=== PATIENT | male | born 1985 | race Caucasian/White ===

== ENCOUNTER 2016-10-26 14:51 | Observation (INO) | payer BC ==
[~2016-10-26] VITALS: Ht 177.8 cm; Wt 128.7 kg
[~2016-10-26 14:51] MED LIST: FENTANYL1 EAC1 TD; PERCOCET 5/31 TABLET PO
[2016-10-26 15:18] LABS: HEMATOCRIT 43.3 % (38.0-50.0); MCHC 34.9 G/DL (30.0-36.0); MCV 88.9 FL (86-99); MEAN PLAT.VOLUME 9.2 uM^3 (9.0-12.4); PLATELET COUNT 290 K/uL (156-360); RBC DIS.WIDTH-CV 12.3 % (11.8-14.6); RBC DIS.WIDTH-SD 39.4 % (39-53); RED BLOOD COUNT 4.87 M/uL (4.00-5.50); WHITE BLOOD COUNT 23.2 K/uL (4.1-10.2)
[2016-10-26 15:39] LABS: CHLORIDE 101 mEq/L (99-109); POTASSIUM 4.3 mEq/L (3.7-5.4); SODIUM 138 mEq/L (136-147)
[2016-10-26 15:41] LABS: GLUCOSE 164 mg/dL (70-99)
[2016-10-26 15:42] LABS: ANION GAP 15 MEQ/L (2-14)
[2016-10-26 15:43] LABS: TOTAL BILIRUBIN 0.9 mg/dL (0.0-1.0)
[2016-10-26 15:45] LABS: ALKALINE PHOSPHATASE 137 IU/L (3-129); GFR ESTIMATE (CALCULATED) > 59 mL/min/
[2016-10-26 15:46] LABS: UREA NITROGEN (BUN) 21 mg/dL (9-23)
[2016-10-26 15:48] LABS: LIPASE 11 U/L (1.0-51.0)
[2016-10-26] MEDS ORDERED: KLOR-CON M2020 MEQ PO (19:33)
[2016-10-26] MEDS ORDERED: ZANAFLEX4 MG PO (19:33)
[2016-10-26] MEDS ORDERED: MS CONTIN100 MG PO (19:34)
[2016-10-26] MEDS ORDERED: TRAZODONE HCL50 MG PO (19:34)
[2016-10-26] MEDS ORDERED: ZESTRIL20 MG PO (19:35)
[2016-10-26] MEDS ORDERED: CHANTIX1 MG PO (19:39)
[2016-10-26] MEDS ORDERED: CYMBALTA30 MG PO (19:39)
[2016-10-26] MEDS ORDERED: NEURONTIN800 MG PO (19:40)
[2016-10-26] MEDS ORDERED: LASIX40 MG PO (19:40)
[2016-10-26] MEDS ORDERED: OXYCODONE HCL30 MG PO (19:40)
[2016-10-26 19:50] LABS: ADD MIUA? NO; BILIRUBIN NEGATIVE; BLOOD NEGATIVE; COLOR YELLOW ((YELLOW)); GLUCOSE (STRIP) NEGATIVE; KETONES NEGATIVE; LEUKOCYTES NEGATIVE; NITRITE NEGATIVE; PH, URINE 6.5 (5-8); PROTEIN (STRIP) NEGATIVE; SPECIFIC GRAVITY 1.024 (1.000-1.030); UCUL ADDED? NO; UROBILINOGEN 0.2 MG/DL (0.2-1.0)
[2016-10-26 21:14] VITALS: BP 135/64
[2016-10-26 21:14] LABS: Estimated Average Glucose 114 mg/dL (70-123); HEMOGLOBIN A1c (GLYCOHEMOGLOB) 5.6 % HGB (Below 5.7)
[2016-10-27] VITALS: BP 146/67
[2016-10-27 00:13] LABS: POINT-OF-CARE METER ID UU13113831
[2016-10-27 04:20] VITALS: BP 140/71
[2016-10-27 05:41] LABS: POINT-OF-CARE METER ID UU13113831
[2016-10-27 07:13] LABS: ALKALINE PHOSPHATASE 118 IU/L (3-129); ANION GAP 9 MEQ/L (2-14); CHLORIDE 105 MEQ/L (99-109); GFR ESTIMATE (CALCULATED) > 59 mL/min/; GLUCOSE 127 mg/dL (70-99); SAMPLE HEMOLYSIS CHECK 0; SAMPLE ICTERIC CHECK 0; SAMPLE LIPEMIA CHECK 0; SODIUM 136 MEQ/L (136-147); TOTAL BILIRUBIN 0.7 MG/DL (0.0-1.0); UREA NITROGEN (BUN) 11 mg/dL (9-23)
[2016-10-27 07:21] LABS: HEMATOCRIT 36.3 % (38.0-50.0); MCH 30.9 PG (29.0-34.0); MCHC 34.2 G/DL (30.0-36.0); MCV 90.5 FL (86-99); MEAN PLAT.VOLUME 9.4 uM^3 (9.0-12.4); PLATELET COUNT 222 K/uL (156-360); RBC DIS.WIDTH-CV 12.6 % (11.8-14.6); RBC DIS.WIDTH-SD 41.4 % (39-53); RED BLOOD COUNT 4.01 M/uL (4.00-5.50); WHITE BLOOD COUNT 9.9 K/uL (4.1-10.2)
[2016-10-27 08:32] VITALS: BP 137/68
[2016-10-27 12:57] VITALS: BP 133/70
[2016-10-27 13:00] LABS: POINT-OF-CARE METER ID UU13113700
[2016-10-27] MEDS ORDERED: NICOTINE PATCH1 EAC2 TD (13:45)
[2016-10-27] MEDS ORDERED: PROTONIX40 MG PO (13:47)
[2016-10-27] MEDS ORDERED: ZOFRAN4 MG PO (13:47)
== END 2016-10-27 15:28 | disposition home or self-care (01) ==
LOC: EME 14:51 → EDOF 19:23 → 5WEST 19:23 → EDOF 19:23 → 5WEST 20:56
PROVIDERS: Internal Medicine
DX: K52.9 Noninfective gastroenteritis and colitis, unspecified (principal); G89.4 Chronic pain syndrome; D72.829 Elevated white blood cell count, unspecified; R11.2 Nausea with vomiting, unspecified; R91.8 Other nonspecific abnormal finding of lung field; R73.9 Hyperglycemia, unspecified; Z79.891 Long term (current) use of opiate analgesic; F17.200 Nicotine dependence, unspecified, uncomplicated; G62.9 Polyneuropathy, unspecified; S39.92XS Unspecified injury of lower back, sequela; Z88.0 Allergy status to penicillin
CPT/HCPCS: 74176; 80053; 81003; 82272; 82948; 83036; 83630; 83690; 85027; 87177; 87329; 87493; 87502; 99281; 99285; G0378; J1644; J1815; J2270; J2405; J2765; J3010; J7030; J7120; S0028

== ENCOUNTER 2016-12-19 11:37 | Emergency (ER) | payer BC ==
[~2016-12-19] VITALS: Ht 177.8 cm; Wt 128.4 kg
[~2016-12-19 11:37] MED LIST changes: +CHANTIX1 MG PO; +CYMBALTA30 MG PO; +KLOR-CON M2020 MEQ PO; +LASIX40 MG PO; +MS CONTIN100 MG PO; +NEURONTIN800 MG PO; +NICOTINE PATCH1 EAC2 TD; +OXYCODONE HCL30 MG PO; +PROTONIX40 MG PO; +TRAZODONE HCL50 MG PO; +ZANAFLEX4 MG PO; +ZESTRIL20 MG PO; +ZOFRAN4 MG PO
[2016-12-19 13:23] LABS: HEMATOCRIT 35.2 % (38.0-50.0); MCH 31.1 PG (29.0-34.0); MCHC 33.8 G/DL (30.0-36.0); MCV 91.9 FL (86-99); MEAN PLAT.VOLUME 9.1 uM^3 (9.0-12.4); PLATELET COUNT 318 K/uL (156-360); RBC DIS.WIDTH-CV 12.2 % (11.8-14.6); RBC DIS.WIDTH-SD 39.8 % (39-53); RED BLOOD COUNT 3.83 M/uL (4.00-5.50); WHITE BLOOD COUNT 9.2 K/uL (4.1-10.2)
[2016-12-19 13:34] LABS: CHLORIDE 103 mEq/L (99-109); POTASSIUM 4.1 mEq/L (3.7-5.4); SODIUM 141 mEq/L (136-147)
[2016-12-19 13:36] LABS: GLUCOSE 105 mg/dL (70-99)
[2016-12-19 13:37] LABS: ANION GAP 9 MEQ/L (2-14)
[2016-12-19 13:38] LABS: TOTAL BILIRUBIN 0.2 mg/dL (0.0-1.0)
[2016-12-19 13:40] LABS: ALKALINE PHOSPHATASE 109 IU/L (3-129); GFR ESTIMATE (CALCULATED) > 59 mL/min/
[2016-12-19 13:41] LABS: UREA NITROGEN (BUN) 8 mg/dL (9-23)
[2016-12-19] MEDS ORDERED: CLINDAMYCIN HC300 MG PO (15:29)
[2016-12-19 16:34] VITALS: BP 111/57
== END 2016-12-19 15:52 | disposition home or self-care (01) ==
LOC: EME 11:37
PROVIDERS: Nurse Practitioner Family
DX: L02.31 Cutaneous abscess of buttock (principal); Z86.14 Personal history of Methicillin resistant Staphylococcus aureus infection; G89.29 Other chronic pain; F17.210 Nicotine dependence, cigarettes, uncomplicated
CPT/HCPCS: 72193; 80053; 85027; 99281; 99284; J3010

== ENCOUNTER 2017-04-29 17:06 | Emergency (ER) | payer OTHER, BC ==
[~2017-04-29] VITALS: Ht 177.8 cm; Wt 124.6 kg
[~2017-04-29 17:06] MED LIST changes: +CLINDAMYCIN HC300 MG PO
[2017-04-29 17:49] LABS: HEMATOCRIT 38.1 % (38.0-50.0); MCH 31.3 PG (29.0-34.0); MCHC 33.6 G/DL (30.0-36.0); MCV 93.2 FL (86-99); MEAN PLAT.VOLUME 9.5 uM^3 (9.0-12.4); PLATELET COUNT 291 K/uL (156-360); RBC DIS.WIDTH-CV 12.5 % (11.8-14.6); RBC DIS.WIDTH-SD 42.9 % (39-53); RED BLOOD COUNT 4.09 M/uL (4.00-5.50); WHITE BLOOD COUNT 12.1 K/uL (4.1-10.2)
[2017-04-29 18:13] LABS: CHLORIDE 104 mEq/L (99-109); POTASSIUM 3.6 mEq/L (3.7-5.4); SODIUM 140 mEq/L (136-147)
[2017-04-29 18:15] LABS: GLUCOSE 90 mg/dL (70-99)
[2017-04-29 18:16] LABS: ANION GAP 9 MEQ/L (2-14)
[2017-04-29 18:18] LABS: GFR ESTIMATE (CALCULATED) > 59 mL/min/
[2017-04-29 18:19] LABS: UREA NITROGEN (BUN) 11 mg/dL (9-23)
[2017-04-29 18:24] LABS: TROP-I INTERPRETATION NEGATIVE; TROPONIN-I < 0.01 ng/mL (0.0-0.30)
[2017-04-29 22:05] VITALS: BP 124/76
== END 2017-04-29 22:09 | disposition home or self-care (01) ==
LOC: EME 17:06
PROC: 2W3SX1Z Immobilization of Right Foot using Splint (ICD-10-PCS; principal; 2017-04-29)
DX: S92.901A Unspecified fracture of right foot, initial encounter for closed fracture (principal); R10.12 Left upper quadrant pain; G89.29 Other chronic pain; M54.5 Low back pain; W10.9XXA Fall (on) (from) unspecified stairs and steps, initial encounter; I10 Essential (primary) hypertension; F17.200 Nicotine dependence, unspecified, uncomplicated; Z88.1 Allergy status to other antibiotic agents
CPT/HCPCS: 71020; 73630; 74177; 80048; 84484; 85027; 93005; 99281; 99284; J3010; J7030

== ENCOUNTER 2017-05-27 12:57 | Emergency (ER) | payer OTHER ==
[~2017-05-27] VITALS: Ht 177.8 cm; Wt 125.0 kg
[2017-05-27] MEDS ORDERED: TRAZODONE HCL50 MG PO (15:06)
[2017-05-27] MEDS ORDERED: CLONIDINE HCL0.1 MG PO (15:06)
[2017-05-27 16:42] VITALS: BP 141/86
== END 2017-05-27 16:43 | disposition home or self-care (01) ==
LOC: EME 12:57
PROC: 2W3QX1Z Immobilization of Right Lower Leg using Splint (ICD-10-PCS; principal; 2017-05-27)
DX: F11.23 Opioid dependence with withdrawal (principal); M79.671 Pain in right foot; G89.29 Other chronic pain; I10 Essential (primary) hypertension; F17.200 Nicotine dependence, unspecified, uncomplicated
CPT/HCPCS: 73630; 99281; 99283

== ENCOUNTER 2017-09-16 08:30 | Inpatient (IN) | payer OTHER ==
[~2017-09-16] VITALS: Ht 177.8 cm; Wt 116.0 kg
[~2017-09-16 08:30] MED LIST changes: +CLONIDINE HCL0.1 MG PO
[2017-09-16 10:01] LABS: EOSINOPHIL (%) 0.1 % (0-5); HEMATOCRIT 40.5 % (38.0-50.0); IMMATURE GRANULOCYTE (%) 0.4 % (0.0-0.7); IMMATURE GRANULOCYTE COUNT 0.1 K/uL; INSTRUMENT ABS NEUTROPHIL CT 13.9 K/uL; LYMPHOCYTE COUNT 1.2 K/uL (1.0-2.8); MCH 31.1 PG (29.0-34.0); MCHC 34.1 G/DL (30.0-36.0); MCV 91.2 FL (86-99); MEAN PLAT.VOLUME 11.4 uM^3 (9.0-12.4); MONOCYTE (%) 5.5 % (3-12); MONOCYTE COUNT 0.9 K/uL (0-0.8); NEUTROPHIL (%) 86.1 % (45-76); NEUTROPHIL COUNT 13.9 K/uL (1.8-6.4); PLATELET COUNT 234 K/uL (156-360); RBC DIS.WIDTH-CV 12.1 % (11.8-14.6); RBC DIS.WIDTH-SD 40.6 % (39-53); RED BLOOD COUNT 4.44 M/uL (4.00-5.50); WHITE BLOOD COUNT 16.1 K/uL (4.1-10.2)
[2017-09-16 10:35] LABS: CHLORIDE 103 mEq/L (99-109); POTASSIUM 3.7 mEq/L (3.7-5.4); SODIUM 137 mEq/L (136-147)
[2017-09-16 10:37] LABS: GLUCOSE 124 mg/dL (70-99)
[2017-09-16 10:38] LABS: ANION GAP 10 MEQ/L (2-14)
[2017-09-16 10:41] LABS: GFR ESTIMATE (CALCULATED) > 59 mL/min/
[2017-09-16 10:42] LABS: UREA NITROGEN (BUN) 7 mg/dL (9-23)
[2017-09-16] MEDS ORDERED: TYLENOL EXTRA500 MG PO (11:31)
[2017-09-16] MEDS ORDERED: SUBOXONE 8 MG-1 EAC2 SL (11:31)
[2017-09-16] MEDS ORDERED: DESYREL 150 MG150 MG PO (11:31)
[2017-09-16] MEDS ORDERED: [UNRECOGNIZED DRUG - OTHER] PO (11:32)
[2017-09-16 14:23] VITALS: BP 144/69
[2017-09-16 16:00] VITALS: BP 137/68
[2017-09-16 20:13] VITALS: BP 148/70
[2017-09-16 23:59] VITALS: BP 138/69
[2017-09-17] VITALS (7 sets, daily range): BP systolic 128–143; BP diastolic 7–79
[2017-09-17 07:33] LABS: HEMATOCRIT 35.3 % (38.0-50.0); MCH 31.2 PG (29.0-34.0); MCHC 33.7 G/DL (30.0-36.0); MCV 92.7 FL (86-99); MEAN PLAT.VOLUME 10.4 uM^3 (9.0-12.4); PLATELET COUNT 192 K/uL (156-360); RBC DIS.WIDTH-CV 12.3 % (11.8-14.6); RED BLOOD COUNT 3.81 M/uL (4.00-5.50); WHITE BLOOD COUNT 11.7 K/uL (4.1-10.2)
[2017-09-18 04:15] VITALS: BP 145/87
[2017-09-18 08:00] VITALS: BP 134/74
[2017-09-18 11:58] VITALS: BP 136/79
[2017-09-18 15:42] VITALS: BP 135/73
[2017-09-18 20:52] VITALS: BP 166/88
[2017-09-19 00:40] VITALS: BP 133/62
[2017-09-19 07:26] VITALS: BP 130/82
[2017-09-19 07:56] VITALS: BP 130/82
[2017-09-19] MEDS ORDERED: NICOTINE PATCH1 EAC2 TD (09:44)
[2017-09-19] MEDS ORDERED: CIPRODEX OTIC7.5 ML RIGHT EAR (09:45)
[2017-09-19] MEDS ORDERED: LEVAQUIN750 MG PO (09:46)
[2017-09-19] MEDS ORDERED: OXYCONTIN10 MG PO (09:48)
== END 2017-09-19 11:56 | disposition home or self-care (01) | DRG 153 ==
LOC: EME 08:30 → EDOF 11:23 → 3EAST 11:23 → CANRESERV 11:26 → ENRESERV 11:26 → EDOF 11:29 → ENRESERV 12:35 → 3EAST 12:56
PROVIDERS: Hospitalist; Physician Assistant
DX: H70.001 Acute mastoiditis without complications, right ear (principal); H66.91 Otitis media, unspecified, right ear; H60.11 Cellulitis of right external ear; H60.91 Unspecified otitis externa, right ear; G89.4 Chronic pain syndrome; Z79.891 Long term (current) use of opiate analgesic; F17.210 Nicotine dependence, cigarettes, uncomplicated; Z86.14 Personal history of Methicillin resistant Staphylococcus aureus infection; Z88.0 Allergy status to penicillin; E66.9 Obesity, unspecified; J34.2 Deviated nasal septum; I88.9 Nonspecific lymphadenitis, unspecified
CPT/HCPCS: 70486; 80048; 83605; 85025; 85027; 87040; 99281; 99285; J0572; J0696; J1885; J2270; J2405; J3010; J3370; J7030; J7120

== ENCOUNTER 2018-04-22 15:18 | Inpatient (IN) | payer OTHER ==
[~2018-04-22] VITALS: Ht 177.8 cm; Wt 102.6 kg
[~2018-04-22 15:18] MED LIST changes: +CIPRODEX OTIC7.5 ML RIGHT EAR; +DESYREL 150 MG150 MG PO; +LEVAQUIN750 MG PO; +OXYCONTIN10 MG PO; +SUBOXONE 8 MG-1 EAC2 SL; +TYLENOL EXTRA500 MG PO; +[UNRECOGNIZED DRUG - OTHER] PO
[2018-04-22 17:47] LABS: HEMATOCRIT 37.9 % (38.0-50.0); HEMOGLOBIN 13.3 G/DL (12.5-16.6); MCHC 35.1 G/DL (30.0-36.0); MCV 91.1 FL (86-99); RBC DIS.WIDTH-CV 11.9 % (11.8-14.6); RBC DIS.WIDTH-SD 39.8 % (39-53); RED BLOOD COUNT 4.16 M/uL (4.00-5.50); WHITE BLOOD COUNT 18.6 K/uL (4.1-10.2)
[2018-04-22 17:55] LABS: CHLORIDE 103 mEq/L (99-109); POTASSIUM 3.5 mEq/L (3.7-5.4); SODIUM 139 mEq/L (136-147)
[2018-04-22 17:57] LABS: GLUCOSE 97 mg/dL (70-99)
[2018-04-22 18:01] LABS: CREATININE 0.8 mg/dL (0.6-1.3); GFR ESTIMATE (CALCULATED) > 59 mL/min/ (58.99-99999)
[2018-04-22 18:02] LABS: UREA NITROGEN (BUN) 7 mg/dL (9-23)
[2018-04-22 18:25] LABS: PLAT.SUFFICIENCY ADEQUATE
[2018-04-22 18:50] LABS: PLATELET COUNT 258 K/uL (156-360)
[2018-04-22 19:49] LABS: ALBUMIN 4.5 g/dL (3.2-4.8)
[2018-04-22 19:54] LABS: TOTAL BILIRUBIN 1.2 mg/dL (0.0-1.0); TOTAL PROTEIN 7.1 g/dL (6.4-8.3)
[2018-04-22 19:55] LABS: ALKALINE PHOSPHATASE 91 IU/L (3-129)
[2018-04-22 19:58] LABS: ALT (GPT) 15 IU/L (3-49); AST (GOT) 21 IU/L (2-34); DIRECT BILIRUBIN 0.5 mg/dL (0.0-0.3)
[2018-04-22 22:38] VITALS: BP 139/71
[2018-04-23 06:37] LABS: BASOPHIL (%) 0.1 % (0-1); EOSINOPHIL (%) 0 % (0-5); HEMATOCRIT 38.8 % (38.0-50.0); HEMOGLOBIN 13.1 G/DL (12.5-16.6); IMMATURE GRANULOCYTE (%) 0.5 % (0.0-0.7); LYMPHOCYTE COUNT 0.7 K/uL (1.0-2.8); MCHC 33.8 G/DL (30.0-36.0); MCV 91.9 FL (86-99); MONOCYTE (%) 1.4 % (3-12); MONOCYTE COUNT 0.2 K/uL (0-0.8); NEUTROPHIL COUNT 13.6 K/uL (1.8-6.4); PLATELET COUNT 246 K/uL (156-360); RBC DIS.WIDTH-SD 40.2 % (39-53); RED BLOOD COUNT 4.22 M/uL (4.00-5.50); WHITE BLOOD COUNT 14.7 K/uL (4.1-10.2)
[2018-04-23 07:03] VITALS: BP 113/71
[2018-04-23 07:03] LABS: CHLORIDE 105 MEQ/L (99-109); CREATININE 0.7 MG/DL (0.6-1.3); GFR ESTIMATE (CALCULATED) > 59 mL/min/ (58.99-99999); SODIUM 141 MEQ/L (136-147); UREA NITROGEN (BUN) 9 mg/dL (9-23)
[2018-04-23 07:04] LABS: GLUCOSE 167 mg/dL (70-99)
[2018-04-23 10:01] LABS: HEMOGLOBIN A1c (GLYCOHEMOGLOB) 4.7 % (Below 5.7)
[2018-04-23 15:20] VITALS: BP 121/60
[2018-04-23 23:19] VITALS: BP 117/54
[2018-04-24 06:55] VITALS: BP 127/58
[2018-04-24 06:59] LABS: HEMATOCRIT 33.4 % (38.0-50.0); HEMOGLOBIN 11.4 G/DL (12.5-16.6); MCH 31.4 PG (29.0-34.0); MCHC 34.1 G/DL (30.0-36.0); PLATELET COUNT 263 K/uL (156-360); RBC DIS.WIDTH-CV 12.2 % (11.8-14.6); RBC DIS.WIDTH-SD 41.3 % (39-53); RED BLOOD COUNT 3.63 M/uL (4.00-5.50); WHITE BLOOD COUNT 23.9 K/uL (4.1-10.2)
[2018-04-24 07:22] LABS: CHLORIDE 109 MEQ/L (99-109); CREATININE 0.7 MG/DL (0.6-1.3); GFR ESTIMATE (CALCULATED) > 59 mL/min/ (58.99-99999); GLUCOSE 146 mg/dL (70-99); POTASSIUM 3.8 MEQ/L (3.7-5.4); SODIUM 143 MEQ/L (136-147); UREA NITROGEN (BUN) 13 mg/dL (9-23)
[2018-04-24 15:45] VITALS: BP 141/65
[2018-04-24 17:22] VITALS: BP 125/64
[2018-04-25 00:15] VITALS: BP 130/78
[2018-04-25 06:23] VITALS: BP 129/83
[2018-04-25 07:32] VITALS: BP 131/69
[2018-04-25 09:02] LABS: HEMATOCRIT 36.6 % (38.0-50.0); HEMOGLOBIN 12.2 G/DL (12.5-16.6); MCH 31.6 PG (29.0-34.0); MCHC 33.3 G/DL (30.0-36.0); MCV 94.8 FL (86-99); PLATELET COUNT 263 K/uL (156-360); RBC DIS.WIDTH-CV 12.4 % (11.8-14.6); RBC DIS.WIDTH-SD 43.3 % (39-53); RED BLOOD COUNT 3.86 M/uL (4.00-5.50); WHITE BLOOD COUNT 15.4 K/uL (4.1-10.2)
[2018-04-25 09:21] LABS: CHLORIDE 112 MEQ/L (99-109); CREATININE 0.8 MG/DL (0.6-1.3); GFR ESTIMATE (CALCULATED) > 59 mL/min/ (58.99-99999); GLUCOSE 149 mg/dL (70-99); POTASSIUM 3.8 MEQ/L (3.7-5.4); SODIUM 145 MEQ/L (136-147); UREA NITROGEN (BUN) 14 mg/dL (9-23)
[2018-04-25 16:24] VITALS: BP 117/65
[2018-04-26 07:45] VITALS: BP 130/75
[2018-04-26] MEDS ORDERED: IBUPROFEN800 MG PO (12:22)
== END 2018-04-26 16:01 | disposition home or self-care (01) | DRG 603 ==
LOC: EME 15:18 → EDOF 21:21 → 5EAST 21:21 → ENRESERV 21:22 → 5EAST 22:21
PROVIDERS: Hospitalist; Internal Medicine; Physician Assistant
DX: L03.211 Cellulitis of face (principal); G89.4 Chronic pain syndrome; K04.7 Periapical abscess without sinus; F17.210 Nicotine dependence, cigarettes, uncomplicated; Z96.89 Presence of other specified functional implants; I10 Essential (primary) hypertension; K21.9 Gastro-esophageal reflux disease without esophagitis; F41.9 Anxiety disorder, unspecified; G43.909 Migraine, unspecified, not intractable, without status migrainosus; Z88.0 Allergy status to penicillin
CPT/HCPCS: 70491; 80048; 80076; 80202; 83036; 83605; 85025; 85027; 87040; 87641; 99281; 99285; J0574; J0696; J1170; J1650; J1885; J3010; J3370; J7030